=== PATIENT | male | born 1975 | race Caucasian/White ===

== ENCOUNTER → 2020-04-05 13:45 | Outpatient (REF) | payer MEDICAID, SELFPAY ==
--- NOTE | 2020-04-05 14:00 | ECG_ITS ---
Hook-up date: 2020-04-05 14:19:00 Duration: 47:59:00 Test Indications: PALPITATIONS Medications: [id number] QRS complexes * Ventricular ectopics which represent % of total QRS comp. 78 Supraventricular ectopics which represent <1 % of total QRS comp. * Paced QRS complexs which represent % of total QRS comp. VENTRICULAR ECTOPY * Isolated * Bigeminal Cycles * Couplets * Runs * Beats in Runs * Beats LONGEST at * BPM at :: -- * Beats FASTEST at * BPM at :: -- SUPRAVENTRICULAR ECTOPY 78 Isolated 0 Couplets 0 Runs 0 Beats in Runs * Beats LONGEST at * BPM at :: -- * Beats FASTEST at * BPM at :: -- HEART RATES 59 MIN at 06:09:17 2020-04-06 89 AVG 137 MAX at 17:37:03 2020-04-05 LONGEST RR 1.0400 secs at 06:09:16 2020-04-06 S-T LEVELS Channel 1 - 128 mm at 14:19:00 2020-04-05 - 128 mm at 14:19:00 2020-04-05 Channel 2 - 128 mm at 14:19:00 2020-04-05 - 128 mm at 14:19:00 2020-04-05 Channel 3 - 128 mm at 03:33:81 -- - 128 mm at 03:33:81 Basic rhythm Normal sinus rhythm No long pause or profound bradycardia Rare Premature atrial complexes Patient did not report any symptoms in the diary Referred By: Jay Hernández Overread By: GALA WEBER MD
== END ==
LOC: HO.CARD 13:45
PROVIDERS: PCP Internal Medicine; Visit Provider Internal Medicine
DX: R00.2 Palpitations (principal)
CPT/HCPCS: 93226

== ENCOUNTER 2022-07-28 15:11 | Outpatient (REF) | payer MEDICAID, SELFPAY ==
--- NOTE | ~2022-07-28 | XR_ITS ---
EXAMINATION: XR FOOT, RIGHT CLINICAL INFORMATION: Right foot pain COMPARISON: None available. TECHNIQUE: AP, lateral, and oblique views of the right foot. FINDINGS: Bones of the midfoot are well aligned. No tarsal, metatarsal or phalangeal fracture. No significant degenerative changes. No focal soft tissue swelling. No gross ankle joint effusion. XR/XR foot RT min 3V IMPRESSION: Unremarkable radiographs of the right foot.
== END 2022-07-28 15:12 | disposition home or self-care (01) ==
LOC: HO.XRAY 15:11
PROVIDERS: Visit Provider Internal Medicine
DX: M79.671 Pain in right foot (principal)
CPT/HCPCS: 73630